=== PATIENT | male | born 1950 | race Hispanic/Latino ===

== ENCOUNTER 2024-05-09 09:00 | Outpatient (RCR) | payer MEDICARE | END 2024-05-12 | LOC: PT 09:00 | PROVIDERS: ATTEND Physician Assistant | DX: Z47.89 Encounter for other orthopedic aftercare (principal); M75.121 Complete rotator cuff tear or rupture of right shoulder, not specified as traumatic; M62.81 Muscle weakness (generalized); M25.511 Pain in right shoulder; M25.611 Stiffness of right shoulder, not elsewhere classified ==

== ENCOUNTER 2024-05-15 07:56 | Outpatient (RCR) | payer MEDICARE | END 2024-06-12 | LOC: PT 07:56 | PROVIDERS: ATTEND Physician Assistant | DX: Z47.89 Encounter for other orthopedic aftercare (principal); M75.121 Complete rotator cuff tear or rupture of right shoulder, not specified as traumatic; M62.81 Muscle weakness (generalized); M25.511 Pain in right shoulder; M25.611 Stiffness of right shoulder, not elsewhere classified ==